=== PATIENT | male | born 1985 | race Caucasian/White ===

== ENCOUNTER → 2017-01-09 | Outpatient (CLI) | payer OTHER ==
--- NOTE | 2017-01-09 10:23 | KCIC ---
CT chest without contrast History: . Lung nodule. Technique: No intravenous contrast per request. Multiplanar reformatted images were obtained. COMPARISON: None available Exposure: One or more of the following individualized dose reduction techniques were utilized for this examination: 1. Automated exposure control 2. Adjustment of the mA and/or kV according to patient size 3. Use of iterative reconstruction technique. Findings: Vascular structures: Limited exam without contrast.No evidence of thoracic aortic aneurysm. Lymph nodes:No significant enlargement Thyroid gland:Visualized aspect is unremarkable. Heart: No significant pericadial effusion. Pleural spaces: No significant effusion Lungs: Noncalcified nodule identified in the right lower lobe, at the lateral costophrenic angle, measures 7mm diameter. Trachea and central airways: Patent Bones: No destructive process Upper abdomen: Limited slices were obtained through the upper abdomen. Tiny nonobstructive calculus in the partially visualized left kidney. Impression: Noncalcified 7mm right lower lobe pulmonary nodule. Recommend follow-up CT chest in 6 months, in accordance with Fleischner Society criteria. Electronically signed by: Vasiliy Cortez MD (01/09/2017 10:19 AM) [id number]
== END | disposition home or self-care (01) ==
LOC: KCIC CT 08:00
PROVIDERS: ATTEND Internal Medicine Pulmonary Disease
DX: R91.1 Solitary pulmonary nodule (principal)
CPT/HCPCS: 71250

== ENCOUNTER → 2017-01-23 | Outpatient (CLI) | payer OTHER ==
--- NOTE | 2017-01-25 08:56 | EKG ---
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
== END | disposition home or self-care (01) ==
LOC: EKG 07:54
PROVIDERS: ATTEND Internal Medicine Pulmonary Disease
DX: R06.00 Dyspnea, unspecified (principal); R42 Dizziness and giddiness
CPT/HCPCS: 93225